=== PATIENT | female | born 1955 | race Caucasian/White ===

== ENCOUNTER 2016-09-27 06:05 | Emergency (ER) | payer BC ==
[~2016-09-27] VITALS: Ht 162.6 cm; Wt 79.0 kg
[2016-09-27 06:10] VITALS: TEMP 36.5; Ht 162.6 cm; Wt 79.0 kg
[2016-09-27] MEDS ORDERED: LEVO112T4 PO (06:31)
[2016-09-27 06:40] VITALS: O2SAT 97
--- NOTE | 2016-09-27 06:56 | EMERGENCY ROOM VISIT NOTE ---
History Report prepared by Elfego: Joe Nation Under the Supervision of: Dr. Ori Cabrera M.D. First contact with patient: 06:29 Chief Complaint: CHEST PAIN Stated Complaint: BACK,CHEST PAIN,COUGH History of Present Illness The patient is a 61 year old female who presents to the Emergency Room with of resolved constant chest pain that started this morning prior to arrival. The patient states that she woke up with back pain, and when she sat up the pain moved into her chest. The patient states that the pain has currently gone away. She states that she is additionally having some discomfort in her jaw. The patient additionally states that she has been having a dry cough for the past two weeks. She denies any medical problems with her heart, and she denies any stress tests in the past. She additionally denies any history of smoking or diabetes. The patient states that she currently takes levothyroxine. The patient denies any abdominal pain. She states that the last time she ate was around 1700 last night. Source of History: patient Onset: prior to arrival Position: chest Timing: resolved Associated Symptoms: + back pain Note: Associated symptoms: Jaw discomfort Review of Systems See HPI for pertinent positives & negatives. A total of 10 systems reviewed and were otherwise negative. 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 Surgical Problems: (1) H/O thyroidectomy (2) H/O tubal ligation Family History Diabetes mellitus FH: heart attack Heart disease Hypertension Social History Smoking Status: Never Smoker Alcohol Use: occasionally Marital Status: Housing Status: lives with family Occupation Status: retired Current/Historical Medications Scheduled Azithromycin (Zithromax), 250 MG PO DAILY Levothyroxine Sodium (Levothyroxine Sodium), 1 TAB PO DAILY Allergies Coded Allergies: Penicillins (Verified Allergy, Unknown, VAGINITIS, 09/27/16) Physical Exam Vital Signs Date Time Temp Pulse Resp B/P Pulse Ox O2 Delivery O2 Flow Rate FiO2 09/27/16 09:55 78 18 101/63 100 Room Air 09/27/16 09:16 61 09/27/16 06:40 97 Room Air 09/27/16 06:36 67 09/27/16 06:30 98 Room Air 09/27/16 06:10 36.5 69 16 136/72 98 Room Air Physical Exam GENERAL: Patient is a healthy-appearing well-nourished HEAD: Normocephalic atraumatic EYES: Ocular movements intact pupils equal and react to light OROPHARYNX mucous membranes are moist no exudates present no erythema or edema present NECK: Supple no nuchal rigidity CHEST: Good equal expansion LUNGS: Clear and equal to auscultation CARDIAC: Normal S1 and S2 ABDOMEN: Soft nontender no guarding BACK: No CVA tenderness EXTREMITIES: No pain upon palpation normal muscle strength in all groups no clubbing cyanosis or edema NEURO: Patient is following commands is answering questions appropriately. Alert and oriented x3 Cranial Nerves 2-12 grossly intact Medical Decision & Procedures ER Provider Diagnostic Interpretation: X-ray results as stated below per my interpretation and radiologist interpretation. Other radiology results as stated below per my review and radiologist interpretation: SINGLE VIEW CHEST CLINICAL HISTORY: Atypical chest pain. FINDINGS: An AP, portable, upright chest radiograph is obtained. No prior studies are available for comparison at the time of dictation. The examination is degraded by portable technique and patient rotation. The heart is top normal for projection. The mediastinal contour is within normal limits. The lungs appear hyperinflated and hyperlucent with flattening the diaphragm. There is nonspecific interstitial thickening. The appearance suggests obstructive physiology. No airspace consolidation, large pleural effusion, or pneumothorax is seen. Biapical scarring is observed. The skeletal structures are osteopenic. The bony thorax is grossly intact. IMPRESSION: Findings suggest obstructive physiology. There is no acute cardiopulmonary abnormality. Electronically signed by: Lukasz Sanchez M.D. 09/27/2016 7:15 AM Dictated Date/Time: 09/27/2016 7:[address] ANGIOGRAM OF THE CHEST CLINICAL HISTORY: Atypical chest pain. COMPARISON STUDY: Chest x-ray dated 09/27/2016. TECHNIQUE: Following the IV administration of 95 cc of Optiray 320, CT angiogram of the chest was performed from the upper abdomen to the thoracic inlet utilizing the pulmonary embolus protocol. Images are reviewed in the axial, sagittal, and coronal planes. 3-D MIPS images are created and assessed. IV contrast was administered without complication. CT DOSE: 259.62 mGy.cm FINDINGS: Thyroid: Imaged portions of the thyroid gland are normal in size and attenuation. Thoracic aorta: There is minimal atherosclerotic calcification of the thoracic aorta, which is normal in caliber and demonstrates standard 3-vessel arch anatomy. No dissection is seen. Pulmonary vasculature: The pulmonary trunk is normal in caliber. There are no filling defects identified in main, lobar, or segmental pulmonary branches to suggest pulmonary embolus. Heart: The heart is top normal in size and without pericardial effusion. Lungs and pleural spaces: There is biapical scarring. Tiny foci of patchy airspace consolidation are seen in the left upper lobe and lingula. There is mild diffuse peribronchial thickening. No pleural effusion is identified. Dependent atelectasis is observed. The trachea and central airways are clear. A 3 mm left lower right pulmonary nodule is seen on image #174 and a 3 mm right lower lobe pleural-based nodule is seen on image #166. Mediastinum: There is no mediastinal lymphadenopathy. Racquel: There are prominent left hilar lymph nodes which measure up to 8 mm short axis. These may be on a reactive basis. Axillae: There is no axillary lymphadenopathy. Upper abdomen: A small hiatal hernia is observed. There are calcified gallstones identified. Cortical atrophy is noted in the partially imaged kidneys. Partially visualized upper abdominal viscera is within normal limits. Skeletal structures: The skeletal structures are osteopenic. No lytic or blastic bony lesions are seen. There are mild and age indeterminant superior endplate compression deformities of T2, T3, and T4. IMPRESSION: 1. There is no evidence of pulmonary embolus in the main, lobar, or segmental pulmonary arteries. 2. There is mild patchy airspace consolidation identified in the left upper lobe and lingula. The appearance is typical for an infectious/inflammatory pneumonitis. Clinical correlation will be required. 3. Mild diffuse peribronchial thickening suggests reactive airway disease. 4. No pleural effusion is identified. 5. There are 2 pulmonary and pleural-based nodules in the right lower lobe measuring up to 3 mm. These are pathologically indeterminant but low suspicion and can be followed if clinically warranted. See below. 6. Cholelithiasis. 7. Additional changes as above. Please refer to below summary of Fleischner criteria recommendations for follow-up of incidental CT nodules (Sabra Montgomery, Guidelines for management of small pulmonary nodules detected on CT scans: A statement from the Fleischner Society, Radiology 237: [phone].) Low Risk Patient: Minimal or no smoking or other known risk factors for malignancy <=4 mm: No follow-up needed. >4-6 mm: Initial follow-up CT at 12 months; if unchanged, no further follow-up. >6-8 mm: Initial follow-up CT at 6-12 months then at 18-24 months if no change. >8 mm: Follow-up CT at \R\3, 9, 24 months, or PET and/or biopsy. High Risk Patient: History of smoking or other known risk factors <=4 mm: Follow-up at 12 months; if unchanged, no further follow-up. >4-6 mm: Initial follow-up CT at 6-12 months then at 18-24 months if no change. >6-8 mm: Initial follow-up CT at 3-6 months then at 9-12 and 24 months if no change. >8 mm: Same as low risk patient. Note: Nodule size measured as average of length and width. Ground glass or partly solid nodules may require longer follow-up to exclude indolent adenocarcinoma. Electronically signed by: Lukasz Sanchez M.D. 09/27/2016 8:45 AM Dictated Date/Time: 09/27/2016 8:39 AM Laboratory Results 09/27/16 06:15 Red Blood Count 4.30, Mean Corpuscular Volume 92.6, Mean Corpuscular Hemoglobin 30.5, Mean Corpuscular Hemoglobin Concent 32.9, Mean Platelet Volume 9.9, Neutrophils (%) (Auto) 50.9, Lymphocytes (%) (Auto) 39.9, Monocytes (%) (Auto) 4.6, Eosinophils (%) (Auto) 3.7, Basophils (%) (Auto) 0.7, Neutrophils # (Auto) 2.77, Lymphocytes # (Auto) 2.17, Monocytes # (Auto) 0.25, Eosinophils # (Auto) 0.20, Basophils # (Auto) 0.04 09/27/16 06:15 Test 09/27/16 06:15 09/27/16 06:44 09/27/16 08:52 White Blood Count 5.44 K/uL (4.8-10.8) Red Blood Count 4.30 M/uL (4.2-5.4) Hemoglobin 13.1 g/dL (12.0-16.0) Hematocrit 39.8 % (37-47) Mean Corpuscular Volume 92.6 fL (80-100) Mean Corpuscular Hemoglobin 30.5 pg (25-34) Mean Corpuscular Hemoglobin Concent 32.9 g/dl (32-36) Platelet Count 275 K/uL (130-400) Mean Platelet Volume 9.9 fL (7.4-10.4) Neutrophils (%) (Auto) 50.9 % Lymphocytes (%) (Auto) 39.9 % Monocytes (%) (Auto) 4.6 % Eosinophils (%) (Auto) 3.7 % Basophils (%) (Auto) 0.7 % Neutrophils # (Auto) 2.77 K/uL (1.4-6.5) Lymphocytes # (Auto) 2.17 K/uL (1.2-3.4) Monocytes # (Auto) 0.25 K/uL (0.11-0.59) Eosinophils # (Auto) 0.20 K/uL (0-0.5) Basophils # (Auto) 0.04 K/uL (0-0.2) RDW Standard Deviation 48.2 fL (36.4-46.3) RDW Coefficient of Variation 14.2 % (11.5-14.5) Immature Granulocyte % (Auto) 0.2 % Immature Granulocyte # (Auto) 0.01 K/uL (0.00-0.02) Anion Gap 9.0 mmol/L (3-11) Est Creatinine Clear Calc Drug Dose 60.1 ml/min Estimated GFR () 70.4 Estimated GFR (Non- 60.8 BUN/Creatinine Ratio 15.4 (10-20) Calcium Level 8.1 mg/dl (8.5-10.1) Total Bilirubin 0.6 mg/dl (0.2-1) Direct Bilirubin 0.1 mg/dl (0-0.2) Aspartate Amino Transf (AST/SGOT) 7 U/L (15-37) Alanine Aminotransferase (ALT/SGPT) 18 U/L (12-78) Alkaline Phosphatase 68 U/L (45-117) Total Creatine Kinase 85 U/L (26-192) Creatine Kinase MB 0.5 ng/ml (0.5-3.6) Creatine Kinase MB Ratio 0.6 (0-3.0) Troponin I < 0.015 ng/ml (0-0.045) Total Protein 6.9 gm/dl (6.4-8.2) Albumin 3.5 gm/dl (3.4-5.0) Lipase 188 U/L (73-393) Bedside D-Dimer > 450 ng/mlFEU (0-450) Bedside Troponin I 0.000 ng/ml (0-0.045) Labs reviewed by ED physician. Medications Administered Medications (Trade) Dose Ordered Sig/Patricia Route Start Time Stop Time Status Last Admin Dose Admin Sodium Chloride (Nss 500ml) 500 ml @ 999 mls/hr Q31M STAT IV 09/27/16 07:24 09/27/16 07:54 DC 09/27/16 08:25 999 MLS/HR Albuterol (Ventolin Hfa Inhaler) 2 puffs NOW STAT INH 09/27/16 09:09 09/27/16 09:11 DC 09/27/16 10:01 2 PUFFS Albuterol Sulfate (Ventolin 0.083% 2.5MG/3ML Neb) 2.5 mg NOW STAT INH 09/27/16 09:09 09/27/16 09:11 DC 09/27/16 10:00 2.5 MG Azithromycin (Zithromax Tab) 500 mg NOW STAT PO 09/27/16 09:09 09/27/16 09:11 DC 09/27/16 10:01 500 MG ECG Rate (beats per minute): 56 Rhythm: sinus bradycardia Findings: no acute ischemic change, no ectopy ED Course 629: Past medical records reviewed. The patient was evaluated in room A2. A complete history and physical examination was performed. 0724: Sodium Chloride 500 ml @ 999 mls/hr IV 0909: Azithromycin 500mg PO, Ventolin 0.083% 2.5mg/3ml Neb 2.5mg INH, Albuterol 2 puffs INH 0921: Upon reexamination the patient is feeling better. I discussed results and treatment plan with the patient. She verbalizes agreement and understanding. The patient is ready for discharge. Medical Decision Differential diagnosis: Etiologies such as cardiac ischemia, aortic dissection, pulmonary embolism, pneumonia, pneumothorax, musculoskeletal, infections, pericarditis, myocarditis , esophageal rupture, gastrointestinal, as well as others were entertained. This is a 61-year-old female who presents emergency department complaining of shortness of breath. The patient appears to be have a pneumonia on chest x- ray. For this reason the patient was started on azithromycin and continued on inhalers. Patient was in agreement with the treatment plan. Impression Primary Impression: Pneumonia Additional Impression: Precordial chest pain Scribe Attestation The scribe's documentation has been prepared under my direction and personally reviewed by me in its entirety. I confirm that the note above accurately reflects all work, treatment, procedures, and medical decision making performed by me. Departure Information Dispostion Home / Self-Care Prescriptions Azithromycin (ZITHROMAX) 250 Mg Tab 250 MG PO DAILY, #4 TAB Prov: Ori Cabrera MD 09/27/16 Referrals Marcelo Pena M.D. (PCP) Forms HOME CARE DOCUMENTATION FORM, IMPORTANT VISIT INFORMATION, Work Instructions Patient Instructions Chest Pain - [facility], My [facility], Pneumonia (Bacterial) - [facility], Pneumonia Prevent, Pneumonia Tx Additional Instructions Use inhaler twice every 6 hours Follow up with Dr Mesa's office or Cardiology You have been examined and treated today on an emergency basis only. This is not a substitute for, or an effort to provide, complete comprehensive medical care. It is impossible to recognize and treat all injuries or illnesses in a single emergency department visit. It is therefore important that you follow up closely with Dr Pena. Call as soon as possible for an appointment. Thank you for your time and consideration. I look forward to speaking with you again soon. Please don't hesitate to call us if you have any questions. Problem Qualifiers Primary Impression: Pneumonia Pneumonia type: due to unspecified organism Laterality: unspecified laterality Lung location: unspecified part of lung Qualified Codes: J18.9 - Pneumonia, unspecified organism
[2016-09-27 07:13] LABS: BASO % 0.7 %; BASO ABS # 0.04 K/uL (0-0.2); COMPLETE YES; EOS % 3.7 %; HEMATOCRIT 39.8 % (37-47); IG% 0.2 %; LYMPH % 39.9 %; LYMPH ABS # 2.17 K/uL (1.2-3.4); MEAN CELL VOLUME 92.6 fL (80-100); MEAN CORPUSCULAR HEMOGLOBIN 30.5 pg (25-34); MEAN CORPUSCULAR HGB CONC 32.9 g/dl (32-36); MEAN PLATELET VOLUME 9.9 fL (7.4-10.4); MONO % 4.6 %; NEUT % 50.9 %; PLATELET COUNT 275 K/uL (130-400); WHITE BLOOD COUNT 5.44 K/uL (4.8-10.8)
--- NOTE | 2016-09-27 07:17 | DIAGNOSTIC IMAGING REPORT ---
SINGLE VIEW CHEST CLINICAL HISTORY: Atypical chest pain. FINDINGS: An AP, portable, upright chest radiograph is obtained. No prior studies are available for comparison at the time of dictation. The examination is degraded by portable technique and patient rotation. The heart is top normal for projection. The mediastinal contour is within normal limits. The lungs appear hyperinflated and hyperlucent with flattening the diaphragm. There is nonspecific interstitial thickening. The appearance suggests obstructive physiology. No airspace consolidation, large pleural effusion, or pneumothorax is seen. Biapical scarring is observed. The skeletal structures are osteopenic. The bony thorax is grossly intact. IMPRESSION: Findings suggest obstructive physiology. There is no acute cardiopulmonary abnormality. Electronically signed by: Lukasz Sanchez M.D. 09/27/2016 7:15 AM Dictated Date/Time: 09/27/2016 7:14 AM
[2016-09-27] MEDS ORDERED: SODIUM CHLORIDE 0.9% 500ML 500 ML IV STA (07:24)
[2016-09-27] MEDS ORDERED: OPTIRAY 320 IV PRN (07:30)
[2016-09-27 07:43] LABS: ALT/SGPT 18 U/L (12-78); AST/SGOT 7 U/L (15-37); BLOOD UREA NITROGEN 15 mg/dl (7-18); BUN/CREATININE RATIO 15.4 (10-20); CALCIUM 8.1 mg/dl (8.5-10.1); CARBON DIOXIDE 27 mmol/L (21-32); CHLORIDE 109 mmol/L (98-107); GLUCOSE 102 mg/dl (70-99); POTASSIUM 3.7 mmol/L (3.5-5.1); SODIUM 145 mmol/L (136-145)
[2016-09-27 07:48] LABS: ALKALINE PHOSPHATASE 68 U/L (45-117); CKMB/CK RATIO 0.6 (0-3.0)
--- NOTE | 2016-09-27 08:46 | DIAGNOSTIC IMAGING REPORT ---
CT ANGIOGRAM OF THE CHEST CLINICAL HISTORY: Atypical chest pain. COMPARISON STUDY: Chest x-ray dated 09/27/2016. TECHNIQUE: Following the IV administration of 95 cc of Optiray 320, CT angiogram of the chest was performed from the upper abdomen to the thoracic inlet utilizing the pulmonary embolus protocol. Images are reviewed in the axial, sagittal, and coronal planes. 3-D MIPS images are created and assessed. IV contrast was administered without complication. CT DOSE: 259.62 mGy.cm FINDINGS: Thyroid: Imaged portions of the thyroid gland are normal in size and attenuation. Thoracic aorta: There is minimal atherosclerotic calcification of the thoracic aorta, which is normal in caliber and demonstrates standard 3-vessel arch anatomy. No dissection is seen. Pulmonary vasculature: The pulmonary trunk is normal in caliber. There are no filling defects identified in main, lobar, or segmental pulmonary branches to suggest pulmonary embolus. Heart: The heart is top normal in size and without pericardial effusion. Lungs and pleural spaces: There is biapical scarring. Tiny foci of patchy airspace consolidation are seen in the left upper lobe and lingula. There is mild diffuse peribronchial thickening. No pleural effusion is identified. Dependent atelectasis is observed. The trachea and central airways are clear. A 3 mm left lower right pulmonary nodule is seen on image #174 and a 3 mm right lower lobe pleural-based nodule is seen on image #166. Mediastinum: There is no mediastinal lymphadenopathy. Racquel: There are prominent left hilar lymph nodes which measure up to 8 mm short axis. These may be on a reactive basis. Axillae: There is no axillary lymphadenopathy. Upper abdomen: A small hiatal hernia is observed. There are calcified gallstones identified. Cortical atrophy is noted in the partially imaged kidneys. Partially visualized upper abdominal viscera is within normal limits. Skeletal structures: The skeletal structures are osteopenic. No lytic or blastic bony lesions are seen. There are mild and age indeterminant superior endplate compression deformities of T2, T3, and T4. IMPRESSION: 1. There is no evidence of pulmonary embolus in the main, lobar, or segmental pulmonary arteries. 2. There is mild patchy airspace consolidation identified in the left upper lobe and lingula. The appearance is typical for an infectious/inflammatory pneumonitis. Clinical correlation will be required. 3. Mild diffuse peribronchial thickening suggests reactive airway disease. 4. No pleural effusion is identified. 5. There are 2 pulmonary and pleural-based nodules in the right lower lobe measuring up to 3 mm. These are pathologically indeterminant but low suspicion and can be followed if clinically warranted. See below. 6. Cholelithiasis. 7. Additional changes as above. Please refer to below summary of Fleischner criteria recommendations for follow-up of incidental CT nodules (Sabra Montgomery, Guidelines for management of small pulmonary nodules detected on CT scans: A statement from the Fleischner Society, Radiology 237: [phone].) Low Risk Patient: Minimal or no smoking or other known risk factors for malignancy <=4 mm: No follow-up needed. >4-6 mm: Initial follow-up CT at 12 months; if unchanged, no further follow-up. >6-8 mm: Initial follow-up CT at 6-12 months then at 18-24 months if no change. >8 mm: Follow-up CT at \R\3, 9, 24 months, or PET and/or biopsy. High Risk Patient: History of smoking or other known risk factors <=4 mm: Follow-up at 12 months; if unchanged, no further follow-up. >4-6 mm: Initial follow-up CT at 6-12 months then at 18-24 months if no change. >6-8 mm: Initial follow-up CT at 3-6 months then at 9-12 and 24 months if no change. >8 mm: Same as low risk patient. Note: Nodule size measured as average of length and width. Ground glass or partly solid nodules may require longer follow-up to exclude indolent adenocarcinoma. Electronically signed by: Lukasz Sanchez M.D. 09/27/2016 8:45 AM Dictated Date/Time: 09/27/2016 8:39 AM
[2016-09-27] MEDS ORDERED: AZITHROMYCIN 250 MG TAB PO STA (09:09)
[2016-09-27] MEDS ORDERED: ALBUTEROL HFA 8 GM INHALER INH STA (09:09)
[2016-09-27] MEDS ORDERED: ALBUTEROL 0.083% NEBU SOLN 3 ML VIAL INH STA (09:09)
[2016-09-27] MEDS ORDERED: AZIT250T PO (09:11)
[2016-09-27 09:55] VITALS: BP 101/63; PULSE 78; O2SAT 100
== END 2016-09-27 10:17 | disposition home or self-care (01) ==
LOC: C.EDB 06:08 → MERGE 06:08 → C.EDA 10:17
DX: J18.9 Pneumonia, unspecified organism (principal); R07.2 Precordial pain; Z86.718 Personal history of other venous thrombosis and embolism